=== PATIENT | male | born 1955 | race Caucasian/White ===

== ENCOUNTER 2021-09-12 11:03 | Emergency (ER) | payer OTHER, BC ==
[2021-09-12 11:30] VITALS: TEMP 98; BMI 25.1
[2021-09-12] MEDS ORDERED: SOTROVIMAB 500 MG in SODIUM CHLORIDE 100 ML IVPB ONE (11:43)
[2021-09-12 16:53] VITALS: BP 144/79; PULSE 95
== END 2021-09-12 15:50 | disposition home or self-care (01) ==
LOC: JCOVINFU 11:03
PROC: 3E033GC Introduction of Other Therapeutic Substance into Peripheral Vein, Percutaneous Approach (ICD-10-PCS; principal; 2021-09-12)
DX: U07.1 COVID-19 (principal)
CPT/HCPCS: 99284-25; M0247; Q0247